=== PATIENT | female | born 1940 | race Caucasian/White ===

== ENCOUNTER 2017-06-10 13:24 | Observation (INO) ==
[2017-06-10] MEDS ORDERED: SALINE FLUSH 10ml SYRINGE IVF PRN (13:36)
[2017-06-10] MEDS ORDERED: NS 1,000 ML IV ONE (13:36)
--- NOTE | 2017-06-10 13:36 | Emergency Department Report ---
General Adult HPI - General Stated complaint: dizzy/nausea Time Seen by Provider: 06/10/17 13:33 Source: patient Mode of arrival: EMS Limitations: no limitations - History of Present Illness HPI narrative: 76 YO F brought to ED by EMS with report of dizziness and nausea. Patient says she was at hair salon and they had just finished when she began to feel dizzy. Says that she was also nauseated. states patient told him that she did not fell well when waking this morning. Patient says she has been feeling dizzy and SOB recently. Saw her mobility scooter repairer one week ago and started on metoprolol 25mg BID . Patient told EMS that she had some mild epigastric pain which went to her back associated with dizziness/nausea. Patient denies CP or diaphoresis associated with dizziness. Patient is no longer having any epigastric discomfort but is still nauseated. Onset (ago): hour(s) - Related Data Home Medications Medication Instructions Recorded Confirmed ALPRAZolam [Xanax] 0.5 mg PO AM 06/10/17 06/10/17 Aspirin 81 mg PO DAILY 06/10/17 06/10/17 Atorvastatin Calcium 40 mg PO HS 06/10/17 06/10/17 Isosorbide Mononitrate ER [Imdur] 90 mg PO AM 06/10/17 06/10/17 Losartan [Cozaar] 50 mg PO BID 06/10/17 06/10/17 Metoprolol Tartrate [Lopressor] 0.5 tab PO BID 06/10/17 06/10/17 Nitroglycerin [Nitrostat] 0.4 mg SL PRN PRN 06/10/17 06/10/17 Omeprazole 40 mg PO AM 06/10/17 06/10/17 Ranitidine [Zantac] 150 mg PO HS 06/10/17 06/10/17 Ranolazine [Ranexa] 1,000 mg PO BID 06/10/17 06/10/17 Allergies Allergy/AdvReac Type Severity Reaction Status Date / Time prochlorperazine Allergy Severe Seizure Verified 06/10/17 17:08 [From Compazine] Sulfa (Sulfonamide Allergy Intermediate Hives Verified 06/10/17 17:08 Antibiotics) Review of Systems All systems: reviewed and negative except as stated Constitutional: Reports: as per HPI, other (dizziness) Gastrointestinal: Reports: as per HPI, nausea PFSH Patient Stated Medical History Angina Yes Hypertension Yes Valvular Heart Disease Yes Gastroesophageal Reflux Yes Disease Other Yes: FREQUENCY AT NIGHT Surgical History: Cardiac stents. Heart catheterization. Right shoulder. Hysterectomy - Social History Smoking status: Never smoker Physical Exam - Limitations Limitations: no limitations - General General appearance: alert, in no apparent distress - Normal Exams: Head:: Normocephalic without trauma Eyes:: Pupils are PERRLA w/ EOMI, No scleral icterus, irritation ENMT:: No facial trauma, nasal exudates, pharyngeal erythema Neck:: Full range of motion, without adenopathy Chest/Respirations:: Clear all [place], with good airflow, and symmetry bilaterally Cardiovascular:: Regular rate and rhythm, without murmur or gallop Abdomen:: Bowel sounds positive, soft, non-tender, non-distended, no hepatosplenomegaly Musculoskeletal:: No tenderness, or deformity noted, good range of motion, all extremities Neurological:: Patient is alert, and oriented, cranial nerves, motor/sensory/ cerebellar, exams w/o gross deficits, to observation Psychiatric:: Patient exhibits, appropriate attention, emotion and affect Course - Consultations Consultation #1: I discussed patient's HPI, PMH, labs, VS, CXR and exam findings with Dr. Lanza. Dr. Lanza will admit observation status. Time: 15:25 Vital Signs Temperature 97.6 F 06/10/17 13:27 Pulse Rate 61 06/10/17 13:27 Respiratory Rate 16 06/10/17 13:27 Blood Pressure 175/84 H 06/10/17 13:27 Pulse Oximetry 97 06/10/17 13:27 Temperature 95.1 F L 06/11/17 15:11 Pulse Rate 65 06/11/17 15:11 Respiratory Rate 16 06/11/17 15:11 Blood Pressure 120/69 06/11/17 15:11 Pulse Oximetry 98 06/11/17 15:11 Medical Decision Making - [facility] Narrative Medical decision making narrative: CBC unremarkable. NA 128 with calculated all of the 247 Other chemistries unremarkable UA unremarkable Patient is admitted to hospital service observation status for hyponatremia and further evaluation of symptoms. - Differential Diagnosis SC, Medication effect, Hyponatremia, UTI, TIA - Medical Records Medical records reviewed: Yes: I reviewed the patient's medical records. - Lab Data Lab results reviewed: Yes: I reviewed the patient's lab results. Result diagrams: 06/11/17 02:13 06/11/17 13:57 Lab Results 06/10/17 06/10/17 06/10/17 Range/Units 13:52 13:52 14:58 WBC 5.7 (4.5-11.0) T/MM3 RBC 3.91 L (4.00-5.20) M/MM3 Hgb 11.6 L (12-16) GM/DL Hct 35.9 L (36-46) % MCV 91.8 (80-100) UM3 MCH 29.7 (26-34) UUG MCHC 32.3 (31-37) GM/DL RDW Std Deviation 38.7 (36.9-50.2) FL Plt Count 326 (130-400) T/MM3 MPV 8.3 L (9.4-12.4) UM3 Neutrophils % (Manual) 66.0 (33-66) % Band Neutrophils % 1.0 (0-6) % Lymphocytes % (Manual) 29.0 (23-45) % Monocytes % (Manual) 1.0 (0-9.0) % Eosinophils % (Manual) 3.0 (0-4) % Neutrophils # (Manual) 3.8 (1.8-7.7) T/MM3 Band Neutrophils # 0.1 T/MM3 Lymphocytes # (Manual) 1.7 (1-4.8) T/MM3 Monocytes # (Manual) 0.1 (0-0.8) T/MM3 Eosinophils # (Manual) 0.2 (0-0.5) T/MM3 RBC Morph Comment Normal Turbidity < 20 (0-20) Sodium 128 L (134-144) MEQ/L Potassium 4.6 (3.6-5) MEQ/L Chloride 94 L (98-107) MEQ/L Carbon Dioxide 26 (22-30) MEQ/L Anion Gap 8 (5-15) MEQ/L BUN 12.0 (7-17) MG/DL Creatinine 0.7 (0.7-1.2) MG/DL GFR Calculation 82 BUN/Creatinine Ratio 17 (6-26) RATIO Glucose 96 (65-110) MG/DL Calculated Osmolality 247 L (261-280) MOSM/KG Calcium 9.5 (8.4-10.2) MG/DL Total Bilirubin 0.70 (0.20-1.30) MG/DL Icterus Index < 2 (0-7) AST 29 (14-36) U/L ALT 39 (9-52) U/L Alkaline Phosphatase 61 (38-126) U/L Troponin I < 0.012 (0-0.12) ng/ml B-Natriuretic Peptide 302 H (0-175) pg/mL Total Protein 6.9 (6.3-8.2) G/DL Albumin 4.5 (3.5-5.0) G/DL Globulin 2.4 (2.4-3.6) G/DL Albumin/Globulin Ratio 1.9 (1.1-2.2) RATIO Specimen Hemolysis < 15 (0-25) Ur Collection Type Urine, clean catch Urine Color Yellow (YELLOW) Urine Clarity Clear Urine pH 7.0 (5.0-8.0) Ur Specific [place] 1.015 (1.015-1.025) Urine Protein Negative (NEGATIVE) Urine Glucose (UA) Negative (NEGATIVE) Urine Ketones Negative (NEGATIVE) Urine Occult Blood Negative (NEGATIVE) Urine Nitrate Negative (NEGATIVE) Urine Bilirubin Negative (NEGATIVE) Urine Urobilinogen 0.2 (NORMAL) EU/DL Ur Leukocyte Esterase Negative (NEGATIVE) Urinalysis Comment Microscopic not ind. - Radiology Data Radiology results reviewed: Yes: I reviewed the patient's radiology results. Stable chest, no acute cardiopulmonary findings (Dr. Mejia). - EKG Data EKG #1 EKG attestation: Yes: I reviewed and interpreted this EKG. EKG results narrative: SR with first degree AV block, 61BPM (Dr. Avalos) Disposition Clinical Impression: Hyponatremia with decreased serum osmolality, Dizziness Disposition: [facility] To [facility] Condition: Stable - Seen By: midlevel
[2017-06-10] MEDS ORDERED: ONDANSETRON 4 MG/2 ML INJECTION IVP ONE (14:24)
--- NOTE | 2017-06-10 15:02 | XRay Report ---
INDICATION: SOA, dizzy PROCEDURE: CHEST 2-VIEWS UPRIGHT (PA & LAT) Encounter: Initial Comparison: December 24, 2016 Findings: The lungs are stable in appearance without new focal airspace consolidation. Hyperinflation suggesting COPD. There is no pleural effusion or pneumothorax. The heart size, pulmonary vascularity and mediastinal contours are unchanged. Right shoulder replacement. Right axillary surgical clips. IMPRESSION: Stable appearance of the chest without acute cardiopulmonary disease. .
--- NOTE | 2017-06-10 16:55 | CT Scan Report ---
Indication: dizziness PROCEDURE: CT head/brain wo con: Encounter: Initial Comparison: None Technique: Axial CT images through the head were performed without contrast. Iterative Reconstruction dose reducing technique was utilized. FINDINGS: 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 The ventricles are of normal size, shape, and contour for the patient's age. There are scattered areas of low attenuation in the white matter which most likely represent changes from chronic microvascular ischemia. The brainstem, cerebellum, and cerebral hemispheres otherwise have a normal morphology and CT attenuation. There is no evidence of midline displacement. No hemorrhage, signs of acute territorial stroke, mass effect, mass lesions, or edema is evident. The visualized portions of the skull base, midface, and calvarium demonstrate no abnormality. The paranasal sinuses are well aerated and free of significant disease. The tympanic and mastoid cavities appear normal. IMPRESSION: No acute intracranial hemorrhage or definite acute territorial stroke. Areas of subacute to chronic left frontal lobe ischemia. MRI could be performed for more sensitive evaluation as clinically indicated. .
[2017-06-10] MEDS ORDERED: NITROGLYCERIN 0.4 MG SUBLINGUAL TABLET SL PRN (17:05)
[2017-06-10] MEDS ORDERED: ONDANSETRON 4 MG/2 ML INJECTION IVP PRN ×2 (17:05)
[2017-06-10] MEDS ORDERED: ACETAMINOPHEN 325 MG TABLET PO PRN ×2 (17:05)
[2017-06-10] MEDS ORDERED: NS 1,000 ML IV SCH (17:05)
--- NOTE | 2017-06-10 17:14 | History & Physical Report ---
<Consuelo Mehta - Last Filed: 06/10/17 18:53> History of Present Illness Date: 06/10/17 Chief complaint: dizziness HPI: 76-year-old white female patient of Dr. Hicks brought to ER by EMS following an episode of near syncope. [facility] and [facility] dots and felt dizzy. She also felt slightly short of air, clammy and nauseated. She did vomit a small amount prior to EMS arrival. Had some mild epigastric pain which went to her back associated with dizziness/ nausea. At that time she also had left arm tingling which she reports has occurred in the past. She had onset of bilateral tinnitus and her daughter noticed that she had mildly slurred speech as well. By arrival to ER, her slurred speech and epigastric/back pain resolved. Workup in the ER included negative troponin, negative chest x-ray, EKG - normal sinus rhythm with first- degree AV block, no evidence of ST segment elevation or depression. Sodium was found to be low at 128. Head CT shows no acute changes. Patient recently established with a new solar photovoltaic systems engineer, Dr. Chapman on 06/02/17 , as her previous solar photovoltaic systems engineer retired. She presented with symptoms of dyspnea on exertion which he suspects is secondary to her underlying coronary artery disease. He discontinued her diltiazem at that visit and started her on metoprolol 12.5 mg twice a day and Ranexa 500 mg twice a day with plans to increase to 1000 mg twice a day after 2 weeks. She has a thallium stress test scheduled for June 20. She had an echocardiogram performed on 06/05/17 showing ejection fraction 60-65%, moderate mitral valve regurgitation, mild to moderate aortic valve regurgitation with mild thickening of the aortic valve consistent with sclerosis, and mitral tricuspid regurgitation. General medical history includes multiple vessel CAD. She had PCI in 2005 with stenting of 3-4 vessels. Right coronary artery is known to be patent with no significant coronary disease. The LAD has an in-stent restenosis with collateral circulation. She is on Imdur in addition to the newly started Ranexa and metoprolol. Takes losartan for hypertension. Takes omeprazole and ranitidine for GERD. Takes atorvastatin for dyslipidemia. Is on alprazolam every morning for anxiety. Review of Systems All systems: reviewed and no additional remarkable complaints except as stated - Constitutional Constitutional: Present: fatigue - EENMT Eyes: Present: change in vision Ears: Present: tinnitus (bilateral. Started today.) Balance: Present: other (feels like she is going to pass out. Does have increased dizziness with head movement.) - Respiratory Respiratory: Present: dyspnea (mild. Resolved at present.) - Gastrointestinal Gastrointestinal: Present: constipation (mild), nausea, vomiting (small emesis at onset of symptoms.) - Neurological Neurological: Present: abnormal speech ( reports slurred speech with onset approximately 1200. He states it resolved at the time she arrived in the ED.), dizziness (describes as near syncope), paresthesias (left upper extremity. States this is intermittent. she did note these symptoms with the acute onset of all symptoms. Currently resolved.) PFSH Coronary artery disease, multiple vessel Mitral valve regurgitation Essential hypertension Anxiety/depression GERD Lumbar spinal stenosis Hip DJD Surgical History: Cardiac stents. Heart catheterization. Right shoulder - replacement, and several rotator cuff surgeries. Hysterectomy -ovaries remain. Appendectomy. Tubal ligation. 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) Current residence: Apartment/Private Home Medications Home Medications Medication Instructions Recorded Confirmed Type ALPRAZolam [Xanax] 0.5 mg PO AM 06/10/17 06/10/17 History Aspirin 81 mg PO DAILY 06/10/17 06/10/17 History Atorvastatin Calcium [Atorvastatin 40 mg PO HS 06/10/17 06/10/17 History Calcium] Isosorbide Mononitrate ER [Imdur] 90 mg PO AM 06/10/17 06/10/17 History Losartan [Cozaar] 50 mg PO BID 06/10/17 06/10/17 History Metoprolol Tartrate [Lopressor] 0.5 tab PO BID 06/10/17 06/10/17 History Nitroglycerin [Nitrostat] 0.4 mg SL PRN PRN 06/10/17 06/10/17 History Omeprazole [Omeprazole] 40 mg PO AM 06/10/17 06/10/17 History Ranitidine [Zantac] 150 mg PO HS 06/10/17 06/10/17 History Ranolazine [Ranexa] 1,000 mg PO BID 06/10/17 06/10/17 History Allergies Allergy/AdvReac Type Severity Reaction Status Date / Time prochlorperazine Allergy Severe Seizure Verified 06/10/17 17:08 [From Compazine] Sulfa (Sulfonamide Allergy Intermediate Hives Verified 06/10/17 17:08 Antibiotics) Exam Vital Signs: Temperature 97.6 F 06/10/17 13:27 Pulse Rate 67 06/10/17 16:00 Respiratory Rate 33 H 06/10/17 16:00 Blood Pressure 176/82 H 06/10/17 14:30 Pulse Oximetry 96 06/10/17 16:00 Height: 1.65 m Weight: 56.3 kg - Constitutional Present: no acute distress, well nourished, well developed, thin - Routine HEENT Exam Head: Present: normocephalic, atraumatic Eye: Present: EOMI, PERRL ENT: Present: mucous membranes moist, dentition normal - Routine Neck Exam Present: supple. Absent: carotid bruit, lymphadenopathy, thyromegaly - Routine Respiratory Exam Present: CTA bilaterally. Absent: wheezes - Routine Cardiovascular Exam Present: RRR, S1, S2. Absent: murmur - Routine Abdominal Exam Present: soft, normoactive bowel sounds, non distended. Absent: tenderness - Routine Extremities Exam Present: no edema, normal capillary refill - Routine Skin Exam Present: dry, warm - Routine Neurological Exam Present: alert, oriented X3, CN II-XII intact, moving all extremities, normal tone, normal speech. Absent: sensory deficit, motor deficit, pronator drift - Routine Psychiatric Exam Present: normal affect, normal thought process Results - Labs CBC & Chem 7: 06/10/17 13:52 06/10/17 13:52 Labs: Neg UA, Neg troponin, BNP 302, neg CXR, EKG - NSR with 1st degree AV block Laboratory Tests 06/10/17 13:52 Total Bilirubin 0.70 AST 29 ALT 39 Alkaline Phosphatase 61 Troponin I < 0.012 Total Protein 6.9 Albumin 4.5 Albumin/Globulin Ratio 1.9 - Imaging and Cardiology Chest x-ray Additional comments: IMPRESSION: Stable appearance of the chest without acute cardiopulmonary disease. CT scan - head Additional comments: FINDINGS: 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 The ventricles are of normal size, shape, and contour for the patient's age. There are scattered areas of low attenuation in the white matter which most likely represent changes from chronic microvascular ischemia. The brainstem, cerebellum, and cerebral hemispheres otherwise have a normal morphology and CT attenuation. There is no evidence of midline displacement. No hemorrhage, signs of acute territorial stroke, mass effect, mass lesions, or edema is evident. The visualized portions of the skull base, midface, and calvarium demonstrate no abnormality. The paranasal sinuses are well aerated and free of significant disease. The tympanic and mastoid cavities appear normal. IMPRESSION: No acute intracranial hemorrhage or definite acute territorial stroke. Areas of subacute to chronic left frontal lobe ischemia. MRI could be performed for more sensitive evaluation as clinically indicated. Echocardiogram performed 06/05/17: Normal left ventricular systolic function Ejection fraction is calculated at 65.7% There is mild, age-appropriate diastolic dysfunction. Normal chamber sizes. Aortic valve sclerosis without stenosis, with mild regurgitation. Mild mitral valve prolapse with mild-moderate mitral regurgitation. Mild tricuspid regurgitation. No pulmonary hypertension. Assessment and Plan (1) Hyponatremia with decreased serum osmolality Current visit: Yes Status: Acute (2) Near syncope Current visit: Yes Status: Acute Assessment and Plan: Hyponatremia Start IV normal saline 100 cc/hr Repeat sodium at 2000 and a.m. Near syncope with slurred speech CT head negative. Recent echo reviewed. Carotid sonogram pending. Will place on telemetry and follow serial troponins. Check orthostatic blood pressures. Continue aspirin. Speech consult given her slurred speech. PT/OT eval for dizziness/imbalance. Coronary artery disease-multivessel Continue Ranexa, Imdur, metoprolol, Lipitor and aspirin. Thallium stress test previously scheduled for June [address] Chapman. Essential hypertension Continue losartan. Will follow blood pressures. GERD Continue ranitidine and omeprazole. Anxiety/depression Continue alprazolam every morning. Hospital Course Summary Disclaimer: The visit summary below is not to be considered part of the above Progress Note. Hospital Course: 06/10/17 ADMIT - OBS Hyponatremia Start IV normal saline 100 cc/hr Repeat sodium at 2000 and a.m. Near syncope with slurred speech CT head negative. Recent echo reviewed. Carotid sonogram pending. Will place on telemetry and follow serial troponins. Check orthostatic blood pressures. Continue aspirin. Speech consult given her slurred speech. PT/OT eval for dizziness/imbalance. Coronary artery disease-multivessel Continue Ranexa, Imdur, metoprolol, Lipitor and aspirin. Thallium stress test previously scheduled for June [address] Chapman. Essential hypertension Continue losartan. Will follow blood pressures. GERD Continue ranitidine and omeprazole. Anxiety/depression Continue alprazolam every morning. <Magen Lanza - Last Filed: 06/10/17 19:44> History of Present Illness Date: 06/10/17 [facility] Patient Stated Medical History Other HEENT Yes: dislocated jaw Angina Yes Coronary Artery Disease Yes Hypertension Yes Pneumonia Yes Gastroesophageal Reflux Yes Disease Hiatal Hernia Yes Ulcer Yes Other Yes: FREQUENCY AT NIGHT Exam Vital Signs: Temperature 95.6 F L 06/10/17 17:05 Pulse Rate 72 06/10/17 18:30 Respiratory Rate 14 06/10/17 17:05 Blood Pressure 168/90 H 06/10/17 18:30 Pulse Oximetry 98 06/10/17 17:05 Oxygen Delivery Method Room Air Height: 1.65 m Weight: 56.3 kg Results - Labs CBC & Chem 7: 06/10/17 13:52 06/10/17 13:52 Assessment and Plan (1) Hyponatremia with decreased serum osmolality Problem details: POA Current visit: Yes Status: Acute (2) Vertigo Current visit: Yes Status: Acute (3) Near syncope Current visit: Yes Status: Acute DVT Prophylaxis: SCD's Resuscitation Status: Full Code Assessment and Plan: Have independently interviewed and examined pt. Chart reviewed. Case discussed with ED provider and my RN TELEMETRY. Care plan developed with my supervision; agree with above. Presents to ED with acute onset of dizziness, nausea than occurred while at [employer] very sweaty when symptoms occurred. Did not feel well this am , but hard to specify how so. Does feel more washed out and weak in general. Noted ringing in ears. Feels breathing stable. Had change in cardiac medications about 1 week about, but has been tolerating them well. Eating and drinking as usual. No loose stool. Urinating well. In ED, sodium found to be decreased at 128. With this and patient's symptoms, hospitalist notified and pt placed in OBS for further evaluation. HEENT: No appreciable nystagmus. TM clear bilaterally. No wax in canals. CV: regular Lungs: clear bilaterally AB: soft nt/nd No palpable mass BS present EXT: no edema MSE: awake alert appropriate Plan: OBS. IVF of NS for hydration and to help normalize serum sodium - recheck this evening. Possible change in CV medications affecting dizziness. Potentially could be labyrinthitis, but would expect more nystagmus. Will check seral troponins to exclude coronary event as pt with known CAD. PT/OT to assess functional status. Continue home antihypertensives. SCD for DVT prevention. Zofran prn nausea. Recheck lab in am. Care to return to Dr Gates at time of discharge from [facility]. Hospital Course Summary Disclaimer: The visit summary below is not to be considered part of the above Progress Note.
[2017-06-10 17:38] VITALS: BMI 20.6
[2017-06-10] MEDS: NS 1,000 ML IV SCH (18:31)
[2017-06-10] MEDS: --POM--OMEPRAZOLE 20 MG CAPSULE PO SCH (18:54)
[2017-06-10] MEDS: ISOSORBIDE MONONITRATE 30 MG PO SCH (18:55)
[2017-06-10] MEDS: ALPRAZolam 0.5 MG TABLET PO SCH (18:55)
[2017-06-10] MEDS: --POM--METOPROLOL TARTRATE 25mg TABLET PO SCH (18:55)
[2017-06-10] MEDS: --POM--LOSARTAN 50 MG TABLET PO SCH (21:29)
[2017-06-10] MEDS: RANOLAZINE 500 MG PO SCH (21:30)
[2017-06-10] MEDS ORDERED: --POM--ATORVASTATIN 40 MG TABLET PO SCH (22:00)
[2017-06-10] MEDS ORDERED: RANITIDINE 150 MG PO SCH (22:00)
[2017-06-11 00:28] VITALS: RESP 16
[2017-06-11] MEDS: NS 1,000 ML IV SCH (04:51)
[2017-06-11] MEDS: ISOSORBIDE MONONITRATE 30 MG PO SCH (06:37)
[2017-06-11] MEDS: --POM--OMEPRAZOLE 20 MG CAPSULE PO SCH (06:38)
[2017-06-11 07:29] VITALS: O2SAT 98
--- NOTE | 2017-06-11 08:52 | Ultrasound Report ---
Indication: slurred speech PROCEDURE: US carotid doppler BI: TECHNIQUE: Grayscale, color and duplex Doppler imaging was performed of the carotid systems bilaterally. Velocities in cm/sec - validated velocity measurements with angiographic measurements, velocity criteria are extrapolated from diameter data as defined by the Society of Radiologists in Ultrasound Consensus Conference Radiology 2003; 229;340-346. RIGHT: PSV ICA 95 EDV ICA 29 PSV CCA 64 EDV CCA 18 SVR 1.5 PSV ECA 55 ICA Diameter reduction of 20-40% LEFT: PSV ICA 73 EDV ICA 19 PSV CCA 63 EDV CCA 17 SVR 1.2 PSV ECA 62 ICA Diameter reduction 20%-40% (1.2-1.4 [id number])% The right vertebral artery is patent with cephalic flow. The left vertebral artery is patent with cephalic flow. Prominent calcified plaques in both carotid bulbs and throughout both ICAs without focal velocity elevation. IMPRESSION: No hemodynamically significant carotid stenosis. Heavy plaque burden. .
[2017-06-11] MEDS ORDERED: ASPIRIN 81 MG CHEWABLE TABLET PO SCH (09:00)
[2017-06-11] MEDS: --POM--METOPROLOL TARTRATE 25mg TABLET PO SCH (09:47)
[2017-06-11] MEDS: ALPRAZolam 0.5 MG TABLET PO SCH (09:48)
[2017-06-11] MEDS: RANOLAZINE 500 MG PO SCH (09:50)
[2017-06-11] MEDS: --POM--LOSARTAN 50 MG TABLET PO SCH (09:51)
--- NOTE | 2017-06-11 13:48 | Magnetic Resonance Report ---
Indication: Subtle changes on CT Brain PROCEDURE: MR head/brain wo con: Encounter: Initial Comparisons: Head CT dated June 10, 2017 Technique: Multiplanar, multisequence, MR imaging of the head without contrast was acquired. FINDINGS: The areas of possible infarct suggested on CT are not confirmed by MRI. The ventricles are of normal size, shape, and contour for the patient's age. There are small nonspecific punctate areas of T2-weighted and T2 FLAIR weighted signal abnormality in the deep frontoparietal white matter that most likely represent small vessel ischemic disease. This is of a degree that is considered to be normal for the patient's age. The brain stem, cerebellum, and cerebral hemispheres otherwise have a normal morphologic appearance as well as MR signal intensity on all pulse sequences. There are no areas of restricted diffusion on diffusion weighted imaging to suggest an acute infarct. There is no evidence of an intracranial mass lesion, intracranial hemorrhage, or hydrocephalus. The visualized portions of the orbits, calvarium, paranasal sinuses, and skull base demonstrate no significant abnormality. IMPRESSION: No acute intracranial abnormality. Minimal small vessel ischemic white matter disease which is age compatible. .
--- NOTE | 2017-06-11 14:44 | Progress Note ---
Subjective: F/U: Hyponatremia, N/V. Doing well today. Nausea resolved. Didn't feel like eating much last night, but by today keeping foods and liquids down well. No ab pain. No chest pain. Ambulating well. Breathing well. No new problems. Objective Vital signs: Temperature 97.5 F 06/11/17 07:37 Pulse Rate 63 06/11/17 08:00 Respiratory Rate 16 06/11/17 07:29 Blood Pressure 133/73 06/11/17 07:29 Pulse Oximetry 98 06/11/17 07:29 Oxygen Delivery Method Room Air Weight: 56.5 kg - Constitutional Present: no acute distress, well nourished, well developed, cooperative - Routine HEENT Exam Head: Present: normocephalic, atraumatic Eye: Present: EOMI, PERRL. Absent: conjunctival icterus ENT: Present: mucous membranes moist - Routine Respiratory Exam Present: CTA bilaterally. Absent: respiratory distress, wheezes, crackles - Routine Cardiovascular Exam Present: RRR, murmur - Routine Abdominal Exam Present: soft, normoactive bowel sounds, non distended, non tender. Absent: guarding - Routine Extremities Exam Present: no edema, pulses intact. Absent: cyanosis, clubbing - Routine Musculoskeletal Exam Musculoskeletal: Present: no clubbing or cyanosis, normal strength, normal gait - Routine Skin Exam Present: intact, warm, normal turgor - Routine Neurological Exam Present: alert, oriented X3, CN II-XII intact, vision grossly intact, hearing grossly intact. Absent: motor deficit - Routine Psychiatric Exam Present: normal affect, normal thought process, cooperative, good insight, good judgment. Absent: agitated Results - Labs CBC & Chem 7: 06/11/17 02:13 06/11/17 13:57 Assessment and Plan (1) Hyponatremia with decreased serum osmolality Problem details: POA Current visit: Yes Status: Acute (2) Vertigo Current visit: Yes Status: Resolved (3) Near syncope Current visit: Yes Status: Resolved (4) CAD (coronary artery disease) Current visit: Yes Status: Chronic (5) HTN (hypertension) Current visit: Yes Status: Chronic DVT Prophylaxis: SCD's GI Prophylaxis: other (Omeprazole - pt uses chronically for her GERD. ) Resuscitation Status: Full Code Assessment and Plan: Assessment: Hyponatremia - resolved. Near syncope with slurred speech Coronary artery disease-multivessel Essential hypertension GERD Anxiety/depression MRI preformed secondary to changes noted on CT Head - no evidence of stroke: Age related atrophy found. Carotid Dopplers showing plaque but no rate limiting stenosis. Sodium improved. Nausea resolved. Dizziness/vertigo improved. Plan: Discussed lab and imaging findings with patient and family. Would recommend continuing current CV medications for both cardiac and cerebral protection. Medically stable for discharge to home. Will have F/U with Dr Hicks in 1 week - recheck BMP at that time due to medication and recent hyponatremia. Encourage 2 quarts of water/fluid consumption daily. Encourage continued activities. See orders for details. Sepsis Assessment - Evaluation Sepsis screening result: No Definite Risk Hospital Course Summary Disclaimer: The visit summary below is not to be considered part of the above Progress Note. Hospital Course: 06/10/17 ADMIT - OBS Hyponatremia Start IV normal saline 100 cc/hr Repeat sodium at 2000 and a.m. Near syncope with slurred speech CT head negative. Recent echo reviewed. Carotid sonogram pending. Will place on telemetry and follow serial troponins. Check orthostatic blood pressures. Continue aspirin. Speech consult given her slurred speech. PT/OT eval for dizziness/imbalance. Coronary artery disease-multivessel Continue Ranexa, Imdur, metoprolol, Lipitor and aspirin. Thallium stress test previously scheduled for June [address] Chapman. Essential hypertension Continue losartan. Will follow blood pressures. GERD Continue ranitidine and omeprazole. Anxiety/depression Continue alprazolam every morning. 06/11/17 MRI preformed secondary to changes noted on CT Head - no evidence of stroke: Age related atrophy found. Carotid Dopplers showing plaque but no rate limiting stenosis. Sodium improved. Troponin negative. Nausea resolved. Dizziness/vertigo improved. Blood pressure controlled. Discussed lab and imaging findings with patient and family. Would recommend continuing current CV medications for both cardiac and cerebral protection. Medically stable for discharge to home. Will have F/U with Dr Hicks in 1 week - recheck BMP at that time due to medication and recent hyponatremia. Encourage 2 quarts of water/fluid consumption daily. Encourage continued activities.
--- NOTE | 2017-06-11 15:02 | Discharge Summary ---
Discharge Information Date of admission: 06/10/17 16:06 Attending Physician: Magen Lanza MD Primary care physician: Camila Hicks MD - Discharge Diagnosis (1) Hyponatremia with decreased serum osmolality Problem Details: POA Status: Resolved (2) Vertigo Status: Resolved (3) Near syncope Status: Resolved (4) CAD (coronary artery disease) Status: Chronic (5) HTN (hypertension) Status: Chronic - Laboratory Labs: Laboratory Tests (Admit) 06/10/17 13:52 Sodium 128 L Potassium 4.6 Chloride 94 L BUN 12.0 Creatinine 0.7 Glucose 96 Total Bilirubin 0.70 AST 29 ALT 39 Laboratory Tests 06/10/17 19:57 TSH 0.79 Laboratory Tests 06/10/17 06/10/17 06/11/17 13:52 19:57 02:13 Sodium 128 L 127 L 130 L 06/11/17 13:57 Sodium 134 06/11/17 02:13 06/11/17 13:57 - Radiology Radiology: Eate of Exam: 06/10/17 PROCEDURE: CT head/brain wo con FINDINGS: 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 The ventricles are of normal size, shape, and contour for the patient's age. There are scattered areas of low attenuation in the white matter which most likely represent changes from chronic microvascular ischemia. The brainstem, cerebellum, and cerebral hemispheres otherwise have a normal morphology and CT attenuation. There is no evidence of midline displacement. No hemorrhage, signs of acute territorial stroke, mass effect, mass lesions, or edema is evident. The visualized portions of the skull base, midface, and calvarium demonstrate no abnormality. The paranasal sinuses are well aerated and free of significant disease. The tympanic and mastoid cavities appear normal. IMPRESSION: No acute intracranial hemorrhage or definite acute territorial stroke. Areas of subacute to chronic left frontal lobe ischemia. MRI could be performed for more sensitive evaluation as clinically indicated. Date of Exam: 06/10/17 PROCEDURE: US carotid doppler BI TECHNIQUE: Grayscale, color and duplex Doppler imaging was performed of the carotid systems bilaterally. Velocities in cm/sec - validated velocity measurements with angiographic measurements, velocity criteria are extrapolated from diameter data as defined by the Society of Radiologists in Ultrasound Consensus Conference Radiology 2003; 229;340-346. RIGHT: PSV ICA 95 EDV ICA 29 PSV CCA 64 EDV CCA 18 SVR 1.5 PSV ECA 55 ICA Diameter reduction of 20-40% LEFT: PSV ICA 73 EDV ICA 19 PSV CCA 63 EDV CCA 17 SVR 1.2 PSV ECA 62 ICA Diameter reduction 20%-40% (1.2-1.4 [id number])% The right vertebral artery is patent with cephalic flow. The left vertebral artery is patent with cephalic flow. Prominent calcified plaques in both carotid bulbs and throughout both ICAs without focal velocity elevation. IMPRESSION: No hemodynamically significant carotid stenosis. Heavy plaque burden . ------ Date of Exam: 06/11/17 PROCEDURE: MR head/brain wo con Technique: Multiplanar, multisequence, MR imaging of the head without contrast was acquired. FINDINGS: The areas of possible infarct suggested on CT are not confirmed by MRI. The ventricles are of normal size, shape, and contour for the patient's age. There are small nonspecific punctate areas of T2-weighted and T2 FLAIR weighted signal abnormality in the deep frontoparietal white matter that most likely represent small vessel ischemic disease. This is of a degree that is considered to be normal for the patient's age. The brain stem, cerebellum, and cerebral hemispheres otherwise have a normal morphologic appearance as well as MR signal intensity on all pulse sequences. There are no areas of restricted diffusion on diffusion weighted imaging to suggest an acute infarct. There is no evidence of an intracranial mass lesion, intracranial hemorrhage, or hydrocephalus. The visualized portions of the orbits, calvarium, paranasal sinuses, and skull base demonstrate no significant abnormality. IMPRESSION: No acute intracranial abnormality. Minimal small vessel ischemic white matter disease which is age compatible. History of Present Illness HPI: 76-year-old white female patient of Dr. Hicks brought to ER by EMS following an episode of near syncope. 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 She also felt slightly short of air, clammy and nauseated. She did vomit a small amount prior to EMS arrival. Had some mild epigastric pain which went to her back associated with dizziness/ nausea. At that time she also had left arm tingling which she reports has occurred in the past. She had onset of bilateral tinnitus and her daughter noticed that she had mildly slurred speech as well. By arrival to ER, her slurred speech and epigastric/back pain resolved. Workup in the ER included negative troponin, negative chest x-ray, EKG - normal sinus rhythm with first- degree AV block, no evidence of ST segment elevation or depression. Sodium was found to be low at 128. Head CT shows no acute changes. Patient recently established with a new scoop driver, Dr. Chapman on 06/02/17 , as her previous scoop driver retired. She presented with symptoms of dyspnea on exertion which he suspects is secondary to her underlying coronary artery disease. He discontinued her diltiazem at that visit and started her on metoprolol 12.5 mg twice a day and Ranexa 500 mg twice a day with plans to increase to 1000 mg twice a day after 2 weeks. She has a thallium stress test scheduled for June 20. She had an echocardiogram performed on 06/05/17 showing ejection fraction 60-65%, moderate mitral valve regurgitation, mild to moderate aortic valve regurgitation with mild thickening of the aortic valve consistent with sclerosis, and mitral tricuspid regurgitation. General medical history includes multiple vessel CAD. She had PCI in 2005 with stenting of 3-4 vessels. Right coronary artery is known to be patent with no significant coronary disease. The LAD has an in-stent restenosis with collateral circulation. She is on Imdur in addition to the newly started Ranexa and metoprolol. Takes losartan for hypertension. Takes omeprazole and ranitidine for GERD. Takes atorvastatin for dyslipidemia. Is on alprazolam every morning for anxiety. For complete details of the H&P refer to that document. Objective Vital signs: Temperature 97.5 F 06/11/17 07:37 Pulse Rate 63 07/26/17 08:00 Respiratory Rate 16 06/11/17 07:29 Blood Pressure 133/73 06/11/17 07:29 Pulse Oximetry 98 06/11/17 07:29 Oxygen Delivery Method Room Air Weight: 56.5 kg Hospital Course This is a general summary of the patient's hospital course. For more details refer to the complete medical record. Hospital course: 06/10/17 ADMIT - OBS Hyponatremia Start IV normal saline 100 cc/hr Repeat sodium at 2000 and a.m. Near syncope with slurred speech CT head negative. Recent echo reviewed. Carotid sonogram pending. Will place on telemetry and follow serial troponins. Check orthostatic blood pressures. Continue aspirin. Speech consult given her slurred speech. PT/OT eval for dizziness/imbalance. Coronary artery disease-multivessel Continue Ranexa, Imdur, metoprolol, Lipitor and aspirin. Thallium stress test previously scheduled for June [address] Chapman. Essential hypertension Continue losartan. Will follow blood pressures. GERD Continue ranitidine and omeprazole. Anxiety/depression Continue alprazolam every morning. 06/11/17 MRI preformed secondary to changes noted on CT Head - no evidence of stroke: Age related atrophy found. Carotid Dopplers showing plaque but no rate limiting stenosis. Sodium improved. Troponin negative. Nausea resolved. Dizziness/vertigo improved. Blood pressure controlled. Discussed lab and imaging findings with patient and family. Would recommend continuing current CV medications for both cardiac and cerebral protection. Medically stable for discharge to home. Will have F/U with Dr Hicks in 1 week - recheck BMP at that time due to medication and recent hyponatremia. Encourage 2 quarts of water/fluid consumption daily. Encourage continued activities. DVT Prophylaxis: SCD's GI Prophylaxis: other (Omeprazole - chonically) Discharge Plan - Med Rec/Dispo Referrals/Follow Up: Camila Hicks MD [Family Provider] - 1 Week (Hospital F/U in 1 week - Check BMP at that time due to recent Hyponatremia and BP medication use. ) Russ Chapman MD [Physician] - Prescriptions: Continue Ranolazine [Ranexa] 1,000 mg PO BID Losartan [Cozaar] 50 mg PO BID Omeprazole 40 mg PO AM Metoprolol Tartrate [Lopressor] 0.5 tab PO BID Nitroglycerin [Nitrostat] 0.4 mg SL PRN PRN PRN Reason: Chest Pain ALPRAZolam [Xanax] 0.5 mg PO AM Isosorbide Mononitrate ER [Imdur] 90 mg PO AM Aspirin 81 mg PO DAILY Atorvastatin Calcium 40 mg PO HS Ranitidine [Zantac] 150 mg PO HS Discharge Instructions/Outpatient Orders: Final Provider Discharge Instructions Location: Determined By Patient - Disposition 01 Discharged Home, Self-Care - Attestation Attestation Narrative: I have independently interviewed and examined pt prior to discharge. See my progress note from today for details. Medically stable for discharge to home.
[2017-06-11 15:14] VITALS: BP 120/69; TEMP 95.1
[2017-06-11 15:16] VITALS: PULSE 67
[2017-06-12] MEDS ORDERED: OMEPRAZOLE 40 MG PO SCH (06:30)
== END 2017-06-11 15:40 | disposition home or self-care (01) ==
LOC: ED 13:24 → MED 13:24
PROVIDERS: ADMIT Hospitalist; ATTEND Hospitalist